=== PATIENT | male | born 1970 | race Caucasian/White ===

== ENCOUNTER 2019-08-04 11:18 | Emergency (ER) | payer OTHER ==
[~2019-08-04] VITALS: Ht 188 cm; Wt 99.8 kg
[2019-08-04] MEDS ORDERED: NORFLEX100MG PO (11:56)
[2019-08-04] MEDS ORDERED: DICLOFENAC SOD100 MG PO (11:56)
== END 2019-08-04 12:15 | disposition home or self-care (01) ==
LOC: ER 11:18
DX: M54.5 Low back pain (principal)

== ENCOUNTER 2025-08-04 16:14 | Emergency (ER) | payer OTHER ==
[~2025-08-04] VITALS: Ht 188 cm; Wt 97.5 kg
[~2025-08-04 16:14] MED LIST: DICLOFENAC SOD100 MG PO; NORFLEX100MG PO
[2025-08-04] MEDS ORDERED: ZESTRIL40 M1 PO (16:42)
[2025-08-04] MEDS ORDERED: CEFTRIAXONE SODIUM 1,000 MG VIAL IM STA (17:12)
[2025-08-04] MEDS ORDERED: KETOROLAC TROMETHAMINE 30 MG VIAL IM STA (17:12)
[2025-08-04] MEDS ORDERED: CEFTRIAXONE SODIUM 1,000 MG VIAL ONE (18:54)
[2025-08-04] MEDS ORDERED: KETOROLAC TROMETHAMINE 30 MG VIAL ONE (18:54)
[2025-08-04 21:58] LABS: BASO % 0.6 % (0.1-1.2); EOS # 0.05 (0.04-0.54); EOS % 0.5 % (0.7-7.0); LYMPH # 1.71 (1.18-3.74); LYMPH % 17.3 % (19.3-53.1); MEAN PLATELET VOLUME 13.70 fl (9.4-12.4); MONO # 0.75 (0.24-0.82); MONO % 7.6 % (4.7-12.5); NEUT # 7.31 (1.56-6.13); NEUT % 73.8 % (34.0-71.1); RED CELL DISTRIBUTION WIDTH 12.7 % (11.6-14.4)
[2025-08-04 22:19] LABS: BUN CREA RATIO 15.0 (7.0-25.0); CREATININE SERUM 1.29 mg/dL (0.70-1.30); GFR 57.82; GLUCOSE FASTING 87.0 mg/dL (65-100); OSMOLALITY SERUM 287.0 MOSM/KG (275-295)
[2025-08-04 22:25] LABS: URINE APPEARANCE Clear; URINE BILIRRUBIN Negative (NEGATIVE); URINE BLOOD Negative; URINE COLOR Yellow; URINE GLUCOSE Negative (NEGATIVE); URINE KETONE Negative (NEGATIVE); URINE LEUKOCYTE Negative; URINE NITRATE Negative; URINE PROTEIN Negative (NEGATIVE); URINE UROBILINOGEN 0.2 E.U./dl
[2025-08-04] MEDS ORDERED: NABUMETONE500 MG PO (22:31)
[2025-08-04] MEDS ORDERED: INTESTINEX680 M1 PO (22:31)
[2025-08-04] MEDS ORDERED: AMOX-CLAV 875-1 EACH PO (22:31)
[2025-08-04 22:34] LABS: URINE BACTERIA 9.5 uL (0.0-1933); URINE RBC 8.7 uL (0.0-20.8)
[2025-08-04 22:38] LABS: URINE CAST 0.00 uL (0.0-1.40); URINE EPITHELIAL CELLS 0.9 uL (0.0-38.8); URINE WBC 1.3 uL (0.0-23.2)
== END 2025-08-04 23:10 | disposition home or self-care (01) ==
LOC: ER 16:15
PROVIDERS: General Practice
DX: N49.2 Inflammatory disorders of scrotum (principal); I10 Essential (primary) hypertension